=== PATIENT | male | born 1950 | race Caucasian/White ===

== ENCOUNTER → 2018-01-18 08:47 | Outpatient (CLI) | payer MEDICARE, SELFPAY ==
--- NOTE | 2018-01-18 | DI.US.S_ITS ---
PROCEDURE: US RETRO PERITONEAL LIMITED INDICATIONS: AAA F/U TECHNIQUE: Real time scanning was performed of the aorta and iliac arteries, with image documentation. COMPARISON: None. FINDINGS: Aorta: Proximal aortic diameter measures 2.1 cm. Mid-aorta measures 3.4 cm AP, 3.5 cm transverse, 4.3 cm craniocaudad. Distal aortic diameter is 2.1 cm. Iliac arteries: Right common iliac artery measures 1.2 cm. Left common iliac artery measures 1.3 cm. IMPRESSION: Stable appearance of a mid abdominal aortic fusiform aneurysm, measuring up to 3.5 cm in maximal axial dimension, with reference to the prior ultrasound study 08/03/17. Followup in 1 year is recommended. Dictated by: Candido Valderrama M.D. on 01/18/2018 at 10:02 Approved by: Candido Valderrama M.D. on 01/18/2018 at 10:08
== END ==
PROVIDERS: Family Provider Family Medicine; PCP Family Medicine; Visit Provider Family Medicine
DX: I71.4 Abdominal aortic aneurysm, without rupture (principal)
CPT/HCPCS: 76775

== ENCOUNTER → 2018-03-06 20:55 | Outpatient (CLI) | payer MEDICARE, SELFPAY | PROVIDERS: Family Provider Family Medicine; PCP Family Medicine; Visit Provider Physician Assistant | DX: N39.0 Urinary tract infection, site not specified (principal) | CPT/HCPCS: 87086 ==

== ENCOUNTER → 2020-08-24 11:16 | Outpatient (CLI) | payer OTHER, SELFPAY | PROVIDERS: Visit Provider Physician Assistant | DX: N39.0 Urinary tract infection, site not specified (principal) | CPT/HCPCS: 87077; 87086; 87186 ==

== ENCOUNTER → 2020-09-09 10:21 | Outpatient (CLI) | payer OTHER, SELFPAY ==
--- NOTE | 2020-09-09 | DI.CT.S_ITS ---
PROCEDURE: CT ABDOMEN PELVIS W CON INDICATIONS: Left lower quadrant pain TECHNIQUE: After the administration of oral and intravenous contrast, 5 mm thick sections acquired from the diaphragms to the symphysis. 5 mm thick coronal and sagittal reformats were performed. For radiation dose reduction, the following was used: automated exposure control, adjustment of mA and/or kV according to patient size. COMPARISON: [facility], US, US AAA SCREENING (MEDICARE), 09/12/2019, 10:27. [facility], CT, CT LOW DOSE LUNG CA SCREENING, 06/06/2019, 11:26. FINDINGS: Image quality: Excellent. ABDOMEN: Lung bases: Lung bases are clear. Heart size is prominent. Post median sternotomy. Solid organs: Liver is normal in size and enhancement. Gallbladder is unremarkable. Biliary system is non-dilated. Pancreas enhances normally. Spleen is normal in size and enhancement. No adrenal nodules. Renal enhancement is symmetric. The left kidney appears somewhat atrophic compared to the right. There is bilateral moderate hydronephrosis. Bilateral hydroureter. Nonobstructing calculus in the inferior pole of the left kidney measuring 1.2 cm. Simple renal cysts bilaterally. Peritoneum and bowel: Stomach, small bowel, and colon loops are normal in caliber and wall thickness. Normal appendix. Diverticulosis. No free fluid or air. Nodes and vessels: No retroperitoneal or mesenteric adenopathy. Infrarenal abdominal aortic aneurysm measuring 4.2 cm, (5/48). Extensive calcified atherosclerotic plaque. Left common iliac artery measures 2.2 cm. Right common iliac artery measures 1.7 cm. Miscellaneous: No ventral hernias. PELVIS: Genitourinary: Bladder is distended. There is a calculus near the right UVJ measuring 1 cm. Prostatomegaly with median lobe hypertrophy. Right hydrocele seen. Miscellaneous: No inguinal hernias or adenopathy. Bones: No suspicious bony lesions. Bone island in the inferior right pubic ramus. Moderate DDD. No vertebral body compression fractures. IMPRESSION: 1. Diverticulosis without diverticulitis. No bowel obstruction. 2. Bilateral moderate hydroureteronephrosis. Distended urinary bladder and prostatomegaly. Findings most compatible with bladder outlet obstruction. 3. Bladder calculus and nonobstructing left kidney stone. 4. Infrarenal abdominal aortic aneurysm measuring 4.2 cm, unchanged. 5. Atrophic appearing left kidney suggesting a chronic disease. Comment: Findings were discussed with Marge Arndt MD at 12:47 p.m. Dictated by: Thompson Collins M.D. on 09/09/2020 at 12:32 Approved by: Thompson Collins M.D. on 09/09/2020 at 12:48
== END ==
PROVIDERS: PCP Student in an Organized Health Care Education/Training Program; Referring Provider Student in an Organized Health Care Education/Training Program; Visit Provider Student in an Organized Health Care Education/Training Program
DX: K57.90 Diverticulosis of intestine, part unspecified, without perforation or abscess without bleeding (principal); N13.30 Unspecified hydronephrosis; N40.0 Benign prostatic hyperplasia without lower urinary tract symptoms; N21.0 Calculus in bladder; N20.0 Calculus of kidney; I71.4 Abdominal aortic aneurysm, without rupture
CPT/HCPCS: 74177; Q9967

== ENCOUNTER → 2020-11-10 13:07 | Outpatient (CLI) | payer OTHER, MEDICARE, SELFPAY ==
[2020-11-10 13:38] LABS: COVID19 -Nasal RAPID Negative (Negative)
== END ==
PROVIDERS: PCP Student in an Organized Health Care Education/Training Program; Visit Provider Specialist
DX: Z20.822 Contact with and (suspected) exposure to COVID-19 (principal)
CPT/HCPCS: 87635

== ENCOUNTER 2020-11-12 07:56 | Day surgery (SDC) | payer OTHER, MEDICARE, SELFPAY ==
[2020-11-10 08:16] VITALS: BMI 38.4
--- NOTE | 2020-11-12 | DI.RAD.S_ITS ---
PROCEDURE: XR KUB INDICATIONS: Right ureteral calculus TECHNIQUE: One view of the abdomen acquired. COMPARISON: [facility], CT, CT ABDOMEN PELVIS W CON, 09/09/2020, 11:35. FINDINGS: Surgical changes and devices: None. Bowel: Bowel gas pattern is normal. Soft tissues: 1.2 centimeter stone projects over the superior pole of the left kidney. 1 centimeter stone projects over the right lower hemipelvis expected region of the right UVJ. Visualized solid organ contours appear normal in size. Bones: No suspicious bony lesions. IMPRESSION: Left renal and right UVJ stones unchanged in position compared to September 09, 2020. Dictated by: Fidelina Danielle MD, PhD on 11/12/2020 at 8:38 Approved by: Fidelina Danielle MD, PhD on 11/12/2020 at 8:40
[2020-11-12 08:22] VITALS: BP 133/76; PULSE 55; RESP 16; TEMP 36.2; O2SAT 94
[2020-11-12 08:34] VITALS: BMI 38.4
--- NOTE | 2020-11-12 09:37 | PM.PREOP ---
Pre-operative Note Interval Note History & Physical reviewed/Exam performed by Physician: Yes Changes to H&P: No
== END 2020-11-12 08:00 | disposition home or self-care (01) ==
LOC: OR 07:57
PROVIDERS: PCP Student in an Organized Health Care Education/Training Program; Referring Provider Student in an Organized Health Care Education/Training Program; Visit Provider Specialist
DX: N20.1 Calculus of ureter (principal); R00.1 Bradycardia, unspecified; Z53.09 Procedure and treatment not carried out because of other contraindication
CPT/HCPCS: 52353; 74018

== ENCOUNTER → 2020-11-18 11:47 | Outpatient (CLI) | payer OTHER, MEDICARE, SELFPAY ==
[2020-11-18 12:15] LABS: COVID19 -Nasal RAPID Negative (Negative)
== END ==
PROVIDERS: PCP Student in an Organized Health Care Education/Training Program; Visit Provider Specialist
DX: Z20.822 Contact with and (suspected) exposure to COVID-19 (principal)
CPT/HCPCS: 87635; C9803

== ENCOUNTER 2020-11-19 06:32 | Day surgery (SDC) | payer OTHER, MEDICARE, SELFPAY ==
[2020-11-15 12:05] VITALS: BMI 38.4
[2020-11-19] VITALS (7 sets, daily range): BP systolic 117–152; BP diastolic 60–85; PULSE 45–58; RESP 10–16; TEMP 35.8–37.1; O2SAT 93–98; BMI 38.4
[2020-11-19] MEDS: LACTATED RINGERS 1,000 ML 42 ML IV (07:20)
--- NOTE | 2020-11-19 07:38 | PM.PREOP ---
Pre-operative Note Interval Note History & Physical reviewed/Exam performed by Physician: Yes Changes to H&P: No
[2020-11-19] MEDS: CEFAZOLIN VIAL 3 GM in SODIUM CHLORIDE 0.9% 100 ML 200 ML IV (07:52)
--- NOTE | 2020-11-19 08:07 | SUR.OPER ---
Lithotomy on padded OR bed, head on pillow, arms secured on padded arm boards at <90 degrees abduction. Legs secured in padded yellow fins stirrups.
--- NOTE | 2020-11-19 08:11 | SUR.OPER ---
Patient is asleep and ready for a surgery; surgeon has been notified at 08:00. Waiting for surgeon.
[2020-11-19] MEDS: IOPAMIDOL 15 ML VIAL INJ (08:25)
--- NOTE | 2020-11-19 09:08 | SUR.PHASEI ---
Received to PACU after general anesthesia. Airway patent, self maintained. Report from GERARDO Alston and Dr Goldsmith. Dr Malone at bedside - instructed not to give the B&O suppository.
--- NOTE | 2020-11-19 09:09 | P.OP_ITS ---
Operative Date/Time/Diagnoses Date of procedure: 11/19/20 Time of procedure: 09:09 Pre-op diagnosis: 1. Bladder calculus Post-op diagnosis: other (Also, left distal ureteral calculus) Procedure & Clinicians Procedure: 1. Laser cystolitholapaxy 2. Left ureteral stone extraction Same procedure as scheduled: No (Left ureteral stone extraction for incidental calculus at left ureteral [place]) Indications: 1. Bladder calculus Surgeon: Keely Malone Click Yes if Unassisted: Yes Anesthesia Type: General Operative Notes Findings: 1. Urethra-normal caliber without annular stricture lesion. 2. External sphincter coapted with a normal overlying urothelium. 3. Prostate 5 cm length with obstructing trilobar hyperplasia. 4. Bladder-1 to 2+ trabeculation with moderate intravesical protrusion of median lobe. A spherical calculus with spiculations was identified line dependently in the bladder floor. A small calculus was seen intermittently at the left ureteral meatus. Intraoperative decision to perform left distal ureteral dilation and stone extraction performed. Closure Type: not applicable Specimen(s): other (Laser stone fragments from bladder stone) Estimated Blood Loss (mL): 1 Blood products transfused: none Tourniquet time (min): 0 Procedure in detail: Patient was positioned supine and administered general anesthesia. He was then repositioned semi lithotomy and the lower abdomen, genitalia, and groin were prepped and draped in sterile fashion. The laser cystoscope was then advanced lower urinary tract with the findings as described above. A 500 micron laser was then selected. All operating room personnel and patient were fitted with laser safety eyewear. Laser lithotripsy was then commenced with excellent resultant fragmentation and clearance into the drain. A small calculus was seen intermittently emanating from the left ureteral meatus with associated mucosal edema. A 0.35 guidewire was then advanced left ureteral orifice and advanced proximally under direct and fluoroscopic guidance. A 12 Estonian by 6 cm balloon dilating catheter was then advanced over the guidewire and positioned across the left ureterovesical junction. The balloon was inflated to 18 atmospheres and held in position for 5 minutes. The balloon was then deflated and backloaded off the wire the stone and fragmented and ureteral efflux resulted in clearance of the stone and its fragments with the assistance of mechanical agitation with the guidewire. The guidewire was then withdrawn. The bladder was then drained completely and the laser cystoscope was removed. Patient was then repositioned in supine, awakened, and transferred to [facility] for transportation to PACU. Complications: none Post-operative Condition: stable Disposition: PACU Plan for aftercare: Discharge home
[2020-11-19] MEDS: HYDROCODONE/ACET 5/325 TABLET 1 TAB PO (09:18)
--- NOTE | 2020-11-19 10:18 | SUR.PHASEII ---
Pt was escorted to restroom. Urinal and screening cone was given for stone retrieval. Pt stated he was able to urinate but no stones were found. Pt was prepared for discharge with instructions given on how to do the screening and to place them in the container provided. Also he was instructed to take any stones collected to his next follow up appt.
[2020-11-27 15:44] LABS: Ca oxalate dihydrate 10 % (.); Ca oxalate monohydr 90 % (.)
== END 2020-11-19 10:15 | disposition home or self-care (01) ==
PROVIDERS: PCP Student in an Organized Health Care Education/Training Program; Referring Provider Student in an Organized Health Care Education/Training Program; Visit Provider Specialist
PROC: (CPT 52317; principal; 2020-11-19 07:45)
DX: N21.0 Calculus in bladder (principal); N20.1 Calculus of ureter; Z87.440 Personal history of urinary (tract) infections; N40.1 Benign prostatic hyperplasia with lower urinary tract symptoms; N13.8 Other obstructive and reflux uropathy; I25.10 Atherosclerotic heart disease of native coronary artery without angina pectoris; I25.2 Old myocardial infarction; E78.5 Hyperlipidemia, unspecified; I10 Essential (primary) hypertension; R33.9 Retention of urine, unspecified
CPT/HCPCS: 52317; 52341; 76000; 82365; J0461; J0690; J2405; J2704; J3010

== ENCOUNTER → 2021-01-14 09:43 | Outpatient (CLI) | payer OTHER, MEDICARE, SELFPAY ==
--- NOTE | 2021-01-14 09:47 | DI.RAD.S_ITS ---
PROCEDURE: XR KUB INDICATIONS: BPH, Renal/bladder stones, prostatitis TECHNIQUE: One view of the abdomen acquired. COMPARISON: [facility], CR, XR KUB, 11/12/2020, 8:20. FINDINGS: Surgical changes and devices: None. Bowel: Bowel gas pattern is normal. Soft tissues: Scattered vascular calcifications. 1.1 cm calcification projecting in the region of the left kidney. Previous 1 cm calculus projecting in the right lower hemipelvis this is no longer visualized. Bones: Diffuse spondylosis and facet arthropathy. Moderate bilateral hip joint degeneration. IMPRESSION: Interval resolution of right ureteral vesicular junction calculus. Unchanged appearance of left nephrolithiasis. Dictated by: Fish Chu M.D. on 01/14/2021 at 11:53 Approved by: Fish Chu M.D. on 01/14/2021 at 11:55
[2021-01-14 11:00] LABS: Calcium 9.6 mg/dL (8.4-10.2); Uric Acid 6.5 mg/dL (3.5-8.5)
[2021-01-15 12:09] LABS: Calcium 9.5 mg/dL (8.6-10.2); Parathyroid Hormone, Intact 50 pg/mL (15-65)
== END ==
PROVIDERS: PCP Student in an Organized Health Care Education/Training Program; Referring Provider Specialist; Visit Provider Specialist
DX: N40.1 Benign prostatic hyperplasia with lower urinary tract symptoms (principal); N13.8 Other obstructive and reflux uropathy; N20.0 Calculus of kidney; N21.0 Calculus in bladder; N41.0 Acute prostatitis
CPT/HCPCS: 36415; 74018; 82310; 83970; 84153; 84550

== ENCOUNTER → 2021-06-29 08:26 | Outpatient (CLI) | payer MEDICARE, SELFPAY ==
[2021-06-29 11:48] LABS: COVID19 -Nasal RAPID Negative (Negative)
== END ==
PROVIDERS: PCP Student in an Organized Health Care Education/Training Program; Visit Provider Physician Assistant
DX: Z20.822 Contact with and (suspected) exposure to COVID-19 (principal)
CPT/HCPCS: 87635; C9803

== ENCOUNTER 2021-07-01 13:17 | Day surgery (SDC) | payer MEDICARE, SELFPAY ==
--- NOTE | 2021-07-01 | PATH_ITS ---
[facility] Accession Number: [id number] . 01 Material submitted: . PART A: colon - TRANSVERSE COLON POLYP 2MM PART B: colon - DESCENDING COLON POLYP 2MM PART C: sigmoid colon - SIGMOID COLON POLYP 4MM . 02 Diagnosis: A. Transverse Colon Polyp 2 mm: Tubular adenoma. . B. Descending Colon Polyp 2 mm: Tubular adenoma. . C. Sigmoid Colon Polyp 4 mm: Portions of hyperplastic polyp x2. MRV 07/07/2021 1443 Local . 02 Electronically signed: . Kymberly Hobbs MD, Pathologist NPI- [id number] . 01 Gross description: . Part A: TRANSVERSE COLON POLYP 2MM: Received in formalin is 1 fragment(s) of tee, soft tissue measuring 0.3 x 0.2 x 0.2 cm submitted entirely in 1 cassette(s) Part B: DESCENDING COLON POLYP 2MM: Received in formalin is 1 fragment(s) of tee, soft tissue measuring 0.3 x 0.3 x 0.3 cm submitted entirely in 1 cassette(s) Part C: SIGMOID COLON POLYP 4MM: Received in formalin are 2 fragment(s) of tee, soft tissue measuring 0.2 x 0.2 x 0.2 cm to 0.3 x 0.3 x 0.2 cm submitted entirely in 1 cassette(s) /RIVER 07/04/2021 1903 Local . 02 Pathologist provided ICD-10: K63.5, Z12.11 . 02 CPT . 179714, 387278, [id number] Performed at: 01 [facility] [address], [place], [place] [id number] MD Calvin Ahumada MD Phone: [phone] Performed at: 02 [facility] [address] [place] [id number] MD Katlin Torres MD Phone: [phone]
--- NOTE | 2021-07-01 12:32 | PM.HP.1 ---
History of Present Illness History of Present Illness Date Patient Seen: 07/01/21 Chief complaint: SCREENING COLONOSCOPY Narrative: 71 year old male comes in today for consideration of a screening colonoscopy. First colonoscopy in 1998 indicated for rectal bleeding and significant for four left-sided polyps, tubular adeonmas and hyperplastic. Last colonosocpy in 2018, significant for three tubular adenomas at 50, 60, and 70 cm and diverticulosis. There have been no lower GI symptoms suggesting disease such as change in bowel habits, bleeding, abdominal pain or anemia. There's been no family history of colon cancer or colon polyps. Overall health issues have been stable, including no major cardiac events for at least 6 weeks. PCP: Dr. Garcia Past Medical History: Nephrolithiasis Basal cell CA DM, TYPE 2, W/ MICROALBUMINURIA DM, TYPE 2, W/ OPHTHALMIC COMPL Microalbuminuria HYPERLIPIDEMIA HYPERTENSION, BENIGN ESSENTIAL CAD ABDOMINAL AORTIC ANEURYSM, W/O RUPTURE OBESITY (BMI <40) Libido, decreased ERECTILE DYSFUNCTIO COLON POLYPS, ADENOMATOUS, HX OF Enlarged and hypertrophic nails Past Surgical History: CABG, single vessel left internal mammary to LAD Colon cysts removed Basal cell removed Cataract Extraction jenna 12/29 Family History: Father: Heart Disease, Cancer, Diabetes Mother: Cancer Social History: Marital Status: Household Members: Spouse-Lashanda Patient History Medical History (Updated 01/27/21 @ 09:43 by Keely Malone MD) Abdominal aortic aneurysm BCC (basal cell carcinoma) Bladder calculus BPH (benign prostatic hyperplasia) BPH w urinary obs/LUTS CAD (coronary artery disease) Diabetes Erectile dysfunction Heart attack History of colon polyps History of nephrolithiasis History of UTI HLD (hyperlipidemia) Hydronephrosis Hypertension Ischemic cardiomyopathy Kidney stones Left renal stone Microalbuminuria Prostatitis Urinary retention Surgical History History of cardiac cath S/P CABG x 1 (2012) Family & Social History Family History Mother Cancer Father Cancer Diabetes mellitus Grandmother Hearing impairment Social History: household members spouse Tobacco & Substance use: Smoking Status Former smoker alcohol intake current alcohol intake frequency holiday/special occasion Substance Use Type does not use Meds Home Medications and Allergies Home Medications Medication Instructions Recorded Confirmed Type aspirin 81 mg tablet,delayed 81 mg PO DAILY 02/13/19 07/01/21 History release (Adult Low Dose Aspirin) niacin 250 mg tablet 250 mg PO DAILY 09/15/20 07/01/21 History turmeric 400 mg capsule 400 mg PO DAILY 09/15/20 01/27/21 History carvedilol 12.5 mg tablet 12.5 mg PO BID 11/10/20 07/01/21 History glimepiride 4 mg tablet 4 mg PO BID 11/10/20 07/01/21 History metformin 1,000 mg tablet 1,000 mg PO BID 11/10/20 07/01/21 History pravastatin 40 mg tablet 40 mg PO DAILY 11/10/20 07/01/21 History tamsulosin 0.4 mg capsule 0.4 mg PO BEDTIME #90 cap 11/19/20 07/01/21 Rx olmesartan 20 mg tablet 20 mg PO DAILY 01/27/21 07/01/21 History prasterone (dhea) 50 mg capsule 50 mg PO DAILY 01/27/21 07/01/21 History (DHEA) Allergies Allergy/AdvReac Type Severity Reaction Status Date / Time No Known Drug Allergies Allergy Verified 07/01/21 13:57 Review of Systems Review of Systems Narrative: All remaining ROS were reviewed and negative except as addressed. Exam Narrative Exam Narrative: GENERAL: Alert and oriented, appearing stated age and in no acute distress. HEENT: Head normocephalic/atraumatic. Extraocular movements intact. LUNGS: Clear to ausculation bilaterally, no wheezes, rhonchi or rales. CV: Normal S1 and S2 with regular rate and rhythm, no audible murmurs, rubs or gallops. ABDOMEN: Soft, non-tender, non-distended, no organomegaly. Positive bowel sounds. EXTREMITIES: No clubbing, cyanosis, or edema. NEURO: Cranial nerves II through XII grossly intact, no focal deficits. PSYCH: Alert and oriented x 3. SKIN: No concerning lesions. Assessment & Plan Assessment & Plan narrative: 1. History of colon polyps 2. Screening for colon cancer 3. Diverticulosis Plan for colonoscopy. The nature and character of the procedure as well as anticipated results were discussed. The possibility of not completing the procedure was also discussed. Possible complications including aspiration pneumonia, bleeding, perforation and reaction to medications either for sedation or preparation and missed lesions were discussed. Questions were answered and proceeding to the colonoscopy was elected. Informed consent signed. I sincerely appreciate the referral allowing me to participate in this patient's care. Please contact me with any questions or concerns.
--- NOTE | 2021-07-01 12:43 | P.OP.COLON_ITS ---
Operative Date/Time/Diagnoses Date of procedure: 07/01/21 Procedure Notes SCOAP/Timeout: 3:20 p.m. Procedure in detail: ENDOSCOPIST: Marge Garcia MD Sedation RN: Blanquita Cowan RN Sedation start time: 3:21 p.m. Sedation end time: 3:29 p.m. PROCEDURE: Colonoscopy with cold biopsy INDICATIONS: 1. History of colon polyps 2. Diverticulosis 3. Screening for colon cancer MEDICATION: Levsin 0.125 mg sublingual, incremental doses of Versed and fen tanyl until appropriate level sedation achieved. ASA CLASS: 2 CECAL WITHDRAWAL TIME: 18 minutes COMPLICATIONS: None. EXTENT OF PROCEDURE: Cecum. QUALITY OF PREP: Good with portions of liquid stool. PROCEDURE: Prior to insertion of the colonoscope, a digital rectal examination was accomplished with circumferential palpation of the distal rectal mucosa without significant findings being noted. The high-definition colonoscope was passed into the rectum in the usual fashion and advanced over to the cecum without difficulty. The ileocecal valve, appendiceal stoma, and medial wall all could be inspected and no abnormalities were seen. ASCENDING COLON: As the colonoscope was withdrawn, care was taken to expose and inspect the haustral folds and no abnormalities were seen. HEPATIC FLEXURE: Normal, no polyps, diverticula or other abnormalities. TRANSVERSE COLON: A 2 mm polyp was seen and removed with cold biopsy forceps. Otherwise, normal, no diverticula or other abnormalities. DESCENDING COLON: A 2 mm polyp was seen and removed with cold biopsy forceps. Otherwise, normal, minor diverticulosis and no other abnormalities. SIGMOID COLON: A 4 mm polyp was seen and removed with cold biopsy forceps. Otherwise, minor diverticulosis and no other abnormalities. RECTUM: Normal. J maneuver was produced. There was no significant perianal disease. The J maneuver was broken. The remainder of the rectum was inspected and there was no external hemorrhoid disease. The scope was withdrawn. IMPRESSION: 1. Transverse polyp x1, 2 mm, removed with cold biopsy forceps 2. Descending polyp x1, 2 mm, removed with cold biopsy forceps 3. Sigmoid polyp x1, 4 mm, removed with cold biopsy forceps PLAN: 1. Follow-up in clinic status post pathology results. The possibility of a missed lesion including a malignancy has been discussed with the patient previously. Potential alarm symptoms have been discussed and should be reported immediately.
[2021-07-01] MEDS: LACTATED RINGERS 1,000 ML 200 ML IV (14:06)
[2021-07-01] MEDS: HYOSCYAMINE 0.125 MG TABLET PO (14:07)
[2021-07-01 14:09] VITALS: BP 175/94; PULSE 57; RESP 16; TEMP 36.7; O2SAT 96; BMI 39.1
[2021-07-01] MEDS: MIDAZOLAM 5 MG/5 ML VIAL IV (15:40)
[2021-07-01] MEDS: fentaNYL 250 MCG/5 ML INJ IV (15:40)
[2021-07-01 15:53] VITALS: BP 122/54; PULSE 53; RESP 23; TEMP 36.3; O2SAT 93
[2021-07-01 16:00] VITALS: BP 118/69; PULSE 64; RESP 15; O2SAT 94
--- NOTE | 2021-07-01 16:02 | SUR.PHASEI ---
Patient sitting up drinking juice without difficulty. Denies any pain or nausea.
[2021-07-01 16:05] VITALS: BP 145/68; PULSE 55; RESP 18; O2SAT 94
[2021-07-01 16:25] VITALS: BP 118/76; PULSE 56; RESP 16; TEMP 36.2; O2SAT 94
== END 2021-07-01 16:27 | disposition home or self-care (01) ==
PROVIDERS: PCP Student in an Organized Health Care Education/Training Program; Referring Provider Student in an Organized Health Care Education/Training Program; Visit Provider Student in an Organized Health Care Education/Training Program
PROC: 0DJD8ZZ Inspection of Lower Intestinal Tract, Via Natural or Artificial Opening Endoscopic (ICD-10-PCS; CPT 45378; principal; 2021-07-01 14:30)
DX: Z12.11 Encounter for screening for malignant neoplasm of colon (principal); Z86.010 Personal history of colon polyps; E11.69 Type 2 diabetes mellitus with other specified complication; Z79.84 Long term (current) use of oral hypoglycemic drugs; I25.10 Atherosclerotic heart disease of native coronary artery without angina pectoris; I10 Essential (primary) hypertension; N40.1 Benign prostatic hyperplasia with lower urinary tract symptoms; I25.2 Old myocardial infarction; N13.8 Other obstructive and reflux uropathy; K57.30 Diverticulosis of large intestine without perforation or abscess without bleeding; D12.3 Benign neoplasm of transverse colon; D12.4 Benign neoplasm of descending colon
CPT/HCPCS: 45380; 36415; J2250; J3010

== ENCOUNTER → 2021-08-28 11:05 | Outpatient (CLI) | payer OTHER, SELFPAY ==
[2021-08-28 11:51] LABS: COVID19 -Nasal RAPID Negative (Negative)
== END ==
PROVIDERS: PCP Student in an Organized Health Care Education/Training Program; Visit Provider Nurse Practitioner Family
DX: Z20.822 Contact with and (suspected) exposure to COVID-19 (principal)
CPT/HCPCS: 87635

== ENCOUNTER → 2021-10-05 14:26 | Outpatient (CLI) | payer OTHER, SELFPAY ==
--- NOTE | 2021-10-11 16:54 | DIAB.MNT ---
Initial Diabetes Medical Nutrition Therapy Assessment Name: Miguelito Orellana Date: 10/05/21 Time: 335-440p Dx: Type II Diabetes c microalbuminuria and opthalmic complications Provider: Jose Preferred Learning Style: Listening, watching, reading, doing Miguelito presents today for initial visit regarding T2DM. States he is unsure of when he was diagnosed, but states he started Metformin possibly 10 years ago. +FH DM c father, paternal aunt, and brother. Has never taken classes for DSME. Has financial barriers. Has not been to dentist in years. Has dentures. Last eye exam in May 2020. Has questions regarding what cereal may be a good option. Diet recall indicates limited veggie intake. likes corn, cabbage and cauliflower. is filipina and often has rice with meals. Diet Recall: B: 445a cereal, toasted o one cup + 1c mountain cereal, TBS cranberries, half cup milk L: 12p 1-2 slices bread with eggs ; sandwich ; 1c pretzels with egg whites sn: +/- pretzels with cream cheese D: 6-8p chicken with 3/4 c rice or 1c potatoes ; fish with rice ; 2c red beans and rice sn: +/- cassava cake with 1/4c ice cream ; jae snaps or belvita Beverages: 2-3c tea with honey (unsure amt) ; 16oz x 3 water Anthropometrics: Ht: 67 Wt: 252# reported Physical Activity: 30 min treadmill x 3-5 days per week. Was advised not to lift heavy weights or do sit-ups by cheese weigher. Doing some light weight lifting. More sedentary than ever per report. Feels this has increased with age. Self-Monitoring Blood Glucose: Thinking he may want to check his BG. No meter rx currently. 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 w/resulting apical akinesis, possible dyskinesis History of colon polyps History of nephrolithiasis History of UTI HLD (hyperlipidemia) Hydronephrosis Hypertension Ischemic cardiomyopathy Kidney stones Left renal stone Microalbuminuria Prostatitis S/P CABG x 1 (2012) Urinary retention Nutrition Rx: Carbohydrates: Meal: 45g (60g max) Snack: 15-30g Nutrition Diagnosis: - Excessive CHO intake r/t nutrition related knowledge deficit aeb diet recall and pt report - Self monitoring deficit r/t knowledge deficit aeb pt report - Inconsistent protein intake r/t nutrition related knowledge deficit aeb diet recall and pt report Intervention: This participant was very receptive. Provided appropriate educational handouts. Discussed the following topics: Completed intake assessment. Discussed barriers to care. Pathophysiology of T2DM HgA1c and rationale for goal Importance of self-monitoring, how often, and when to check. Suggested checking at different times to evaluate meals Plate Method, impact of macronutrients on blood sugar, meal timing, carbohydrate counting, pairing macronutrients and spreading out carbohydrates for better blood glucose management Recommended servings for carbohydrates at meals and snacks Brainstormed appropriate meal plan based on food preferences Label reading for net carbs, ie cereal Role of physical activity and following provider guidelines for safety Created SMART goals for patient self-care and success. Goals: Call PCP office for meter and supplies rx prn Treadmill 5 days per week Add protein to breakfast Follow-up: MUNA SOARES follow-up in 3-4 weeks Marcella Howell RDN, RODGER Certified Diabetes Care and Staffing Coordinator P: [phone] Thank you for this referral
== END ==
PROVIDERS: PCP Student in an Organized Health Care Education/Training Program; Referring Provider Student in an Organized Health Care Education/Training Program; Visit Provider Student in an Organized Health Care Education/Training Program
DX: E11.9 Type 2 diabetes mellitus without complications (principal); R80.9 Proteinuria, unspecified; H57.9 Unspecified disorder of eye and adnexa; Z79.84 Long term (current) use of oral hypoglycemic drugs; Z71.3 Dietary counseling and surveillance
CPT/HCPCS: 97802

== ENCOUNTER → 2021-10-27 13:04 | Outpatient (CLI) | payer OTHER, SELFPAY ==
--- NOTE | 2021-10-28 16:57 | DIAB.MNTFU ---
Addendum entered by Marcella Howell 11/03/21 17:34: Physical activity: using treadmill as discussed No weight this visit. Original Note: Follow-up Diabetes Medical Nutrition Therapy Assessment Name: Miguelito Orellana Date: 10/27/21 Time: 110-210p Dx: Type II Diabetes Miguelito presents for follow-up regarding T2DM. Would like to focus on nutrition recs today. Same diet recall reported from last visit, with small changes. He is unclear on how to implement carb counting or pairing. Endorses regular dessert after dinner with honey sweetened tea. Interested in DSME classes. Diet Recall: B: 445a cereal, toasted o one cup + 1c mountain cereal, TBS cranberries, half cup milk L: 12p 1-2 slices bread or 4-5 roll with eggs ; sandwich ; 1c pretzels with egg whites sn: +/- pretzels with cream cheese D: 6-8p chicken with 3/4 c rice or 1c potatoes ; fish with rice ; 2c red beans and rice sn: +/- cassava cake with 1/4c ice cream ; jae snaps or belvita Beverages: 2-3c tea with honey (unsure amt) ; 16oz x 3 water Anthropometrics: Ht: Wt: Weight history: Physical Activity: Self-Monitoring Blood Glucose: Received glucose meter last week. Checked a few BG since. This morning FBG was 194 mg/dL, H. May not be fasting for a full 8 hours over night. Previous readings >200mg/dL. Has questions about when to check. Accidentally threw out strips. 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 w/resulting apical akinesis, possible dyskinesis History of colon polyps History of nephrolithiasis History of UTI HLD (hyperlipidemia) Hydronephrosis Hypertension Ischemic cardiomyopathy Kidney stones Left renal stone Microalbuminuria Prostatitis S/P CABG x 1 (2012) Urinary retention Nutrition Rx: Carbohydrates: Meal: 45g (60g max) Snack: 15-30g Nutrition Diagnosis: - Excessive CHO intake r/t nutrition related knowledge deficit aeb diet recall and pt report - Self monitoring deficit r/t knowledge deficit aeb pt report- improved - Inconsistent protein intake r/t nutrition related knowledge deficit aeb diet recall and pt report Intervention: This participant was very receptive. Provided appropriate educational handouts. Discussed the following topics: Importance of self-monitoring, how often, and when to check. Suggested checking at different times to evaluate meals Strips through insurance vs OTC expense Plate Method, impact of macronutrients on blood sugar, meal timing, carbohydrate counting, pairing macronutrients and spreading out carbohydrates for better blood glucose management Recommended servings for carbohydrates at meals and snacks Brainstormed appropriate meal plan based on food preferences Physical activity plan and progress Created SMART goals for patient self-care and success. Goals: Call PCP office for meter and supplies rx prn- met Treadmill 5 days per week- met Add protein to breakfast- in progress Fast 8 hours prior to FBG check- new Check BG 1-2 x per day: FBG and 1-2 hr pc- new Follow-up: MUNA SOARES follow-up in 2-3 weeks. Miguelito will attend the DSME 3 class series. Will check his recent BG next class and schedule a 1:1 follow-up. Marcella Howell RDN, [facility] Certified Diabetes Care and Coil Placer P: [phone] Thank you for this referral
== END ==
PROVIDERS: PCP Student in an Organized Health Care Education/Training Program; Referring Provider Student in an Organized Health Care Education/Training Program; Visit Provider Student in an Organized Health Care Education/Training Program
DX: E11.9 Type 2 diabetes mellitus without complications (principal); Z79.84 Long term (current) use of oral hypoglycemic drugs; Z71.3 Dietary counseling and surveillance
CPT/HCPCS: 97803

== ENCOUNTER → 2021-11-15 09:12 | Outpatient (CLI) | payer OTHER, SELFPAY ==
--- NOTE | 2021-11-15 17:52 | DIAB.FU ---
Diabetes Education Class Series: Diabetes and Nutrition Name: Miguelito Orellana Date: 11/15/21 Time: 930a-12:20p Miguelito reports he has been working on physical activity, increasing water intake and looking fo patterns in BG. States today's label reading info was very helpful and he feels more confident in choosing foods at the grocery store. He brought his BG logs today for review. FBG are often in goal when fasting a full 8 hours overnight. Class topics covered: ? Debunk nutrition myths and discuss how to sustain healthy eating long-term through moderation and variety ? Define macronutrients and determine their impact on blood sugars ? Discuss macronutrient pairing, Plate Method, and carb counting ? Review general recommendations for carbohydrates ? Practice label reading ? Discuss the role of fiber in diabetes and provide examples of sources ? Review heart health nutrition: fats, fiber, and sodium ? Determine recommendations for grocery shopping and eating out ? Discuss alcohol recommendations ? Review the role of substitute sugars in diabetes management ? Set SMART goals Goal Set: Eat vegetables twice per day for the next month. Follow-up: Diabetes Physiology and Medication Class in one week Marcella Howell RDN, [facility] Registered Dietitian, Certified Diabetes Care and Customer Support Representative [phone] [email or web address]
== END ==
PROVIDERS: PCP Student in an Organized Health Care Education/Training Program; Referring Provider Student in an Organized Health Care Education/Training Program; Visit Provider Student in an Organized Health Care Education/Training Program
DX: E11.9 Type 2 diabetes mellitus without complications (principal); Z71.3 Dietary counseling and surveillance
CPT/HCPCS: G0109

== ENCOUNTER → 2021-11-22 08:57 | Outpatient (CLI) | payer OTHER, SELFPAY ==
--- NOTE | 2021-11-22 15:20 | DIAB.FU ---
Diabetes Education Class Series: Diabetes Physiology and Medications Name: Miguelito Orellana Date: 11/22/21 Time: 190-3070a Miguelito reports continuing to work on reduction in FBG. Has questions regarding BG trends and impact of physiology vs nutrition vs physical activity. Was very attentive and participated well in class. Class topics covered: ? Diabetes pathophysiology ? Discuss different types of diabetes ? Review criteria for diagnosing diabetes ? Review HgA1c measurement and associated blood sugars ? Review blood sugar monitoring safety, technique, and goals ? Discuss ways to reduce complications associated with diabetes, includes microvascular and macrovascular complications ? Review diabetes medications types, action, and side effects ? Health care visits recommended for people with T2DM ? Immunization recommended for people with T2DM ? SMART goals review Follow-up: Diabetes Lifestyle and Ongoing Support Class next month. Due to limited attendance, next week's class is rescheduled. 1:1 scheduled for 1 week and will attend last class next month. Marcella Howell RDN, [facility] Registered Dietitian, Certified Diabetes Care and Material Damage Adjuster [phone] [email or web address]
== END ==
PROVIDERS: PCP Student in an Organized Health Care Education/Training Program; Referring Provider Student in an Organized Health Care Education/Training Program; Visit Provider Student in an Organized Health Care Education/Training Program
DX: E11.9 Type 2 diabetes mellitus without complications (principal); Z71.3 Dietary counseling and surveillance
CPT/HCPCS: G0109

== ENCOUNTER → 2021-11-29 09:27 | Outpatient (CLI) | payer OTHER, SELFPAY ==
--- NOTE | 2021-11-29 10:51 | DIAB.MNTFU ---
Follow-up Diabetes Medical Nutrition Therapy Assessment Name: Miguelito Orellana Date: 11/29/21 Time: 247-6547 Dx: Type II Diabetes Miguelito presents for follow-up visit. He has attended 2/3 DSME classes, and is scheduled to attend the third next month. States he has been working on his diet. Has reduced cereal portions and switched to higher protein options. Has also reduced carb portions, ie rice, with meals. Some high saturated fat intake with cream cheese. Some low veggie intake. Working on including more veggies at dinner. Enjoys raw over cooked vegetables. Plans for new hgA1c in December. Anthropometrics: Ht: 67 Wt: 251.2# today Weight history: -0.8# Physical Activity: 4 days per week, 30 min cardio, 30-45m weights Self-Monitoring Blood Glucose: Checking TID: FBG, pre lunch, and pre dinner. Not many pc readings, one reported at 161 mg/dL (in goal). Did not bring log book or meter today. Recent FBG 115-125mg/dL Sometimes will eat late and fasting <8 hours, but working on this. Most FBG in goal reportedly. worries about running out of supplies. Discussed only checking 1-2 x per day. 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 w/resulting apical akinesis, possible dyskinesis History of colon polyps History of nephrolithiasis History of UTI HLD (hyperlipidemia) Hydronephrosis Hypertension Ischemic cardiomyopathy Kidney stones Left renal stone Microalbuminuria Prostatitis S/P CABG x 1 (2012) Urinary retention Nutrition Rx: Carbohydrates: Meal: 45g (60g max) Snack: 15-30g Nutrition Diagnosis: - Excessive CHO intake r/t nutrition related knowledge deficit aeb diet recall and pt report- improved - Self monitoring deficit r/t knowledge deficit aeb pt report- improved - Inconsistent protein intake r/t nutrition related knowledge deficit aeb diet recall and pt report- improved - Predicted excessive saturated fat intake r/t nutrition knowledge deficit aeb diet recall- new Intervention: This participant was very receptive. Provided appropriate educational handouts. Discussed the following topics: Blood sugar trends. Only needing to check 1-2 x per day. Saturated fat in foods and impact on health, including liver health Review of liver enzymes and nutrition/exercise impact Physical activity plan and progress Created SMART goals for patient self-care and success. Goals: Call PCP office for meter and supplies rx prn- met Treadmill 5 days per week- 80% met Add protein to breakfast- met Reduce SMBG to 1-2 x per day- new Be mindful of cream cheese intake- new Cont working on eating vegetables daily- new Follow-up: MUNA SOARES follow-up in 1 month for class and 2 months for 1:1 Marcella Howell RDN, [facility] Certified Diabetes Care and Barrel Rifler P: [phone] Thank you for this referral
== END ==
PROVIDERS: PCP Student in an Organized Health Care Education/Training Program; Referring Provider Student in an Organized Health Care Education/Training Program; Visit Provider Student in an Organized Health Care Education/Training Program
DX: E11.9 Type 2 diabetes mellitus without complications (principal); Z79.84 Long term (current) use of oral hypoglycemic drugs; Z79.4 Long term (current) use of insulin; Z71.3 Dietary counseling and surveillance
CPT/HCPCS: 97803

== ENCOUNTER → 2022-01-03 09:22 | Outpatient (CLI) | payer OTHER, SELFPAY ==
--- NOTE | 2022-01-04 17:32 | DIAB.FU ---
Diabetes Education Class Series: Diabetes Lifestyle Change and Ongoing Support Name: Miguelito Orellana Date: 01/03/22 Time: 085-9687j Miguelito reports trying to cont weight loss efforts. Endorses 5# loss with watching carb portions and consistent exercise. States he is wondering how he can improve exercise regimen. Class topics covered: ? Discuss the difference between physical activity and exercise ? Determine physical activity benefits and impact on diabetes ? Review physical activity recommendations and safety ? Discuss emergency preparedness ? Discuss diabetes and emotions (diabetes burnout/distress) ? Review and practice stress management techniques ? Review support groups and community resources ? Discuss the role of family support in diabetes care ? What is going well? Challenges of diabetes? ? Set SMART goals Goal Set: Increase exercise time ; check BG Follow-up: MUNA SOARES follow-up 1:1 in 4 weeks Marcella Howell RDN, [facility] Certified Diabetes Care and Seconds Handler P: [phone] Thank you for this referral
== END ==
PROVIDERS: PCP Student in an Organized Health Care Education/Training Program; Referring Provider Student in an Organized Health Care Education/Training Program; Visit Provider Student in an Organized Health Care Education/Training Program
DX: E11.9 Type 2 diabetes mellitus without complications (principal); Z71.3 Dietary counseling and surveillance
CPT/HCPCS: G0109

== ENCOUNTER → 2022-01-26 14:55 | Outpatient (CLI) | payer OTHER, SELFPAY ==
--- NOTE | 2022-01-27 17:41 | DIAB.FU ---
Follow-up Diabetes Education Assessment Name: Miguelito Orellana Date: 01/26/22 Time: 310-405p Dx: Type II Diabetes Provider: Jose Farley presents for follow-up visit after attending DSME classes. Endorses being conscious of carb portions. Lunch recently seems high in carbs (75-100g+). Seems he is fasting 8 hours between meals, not just overnight due to a miscommunication. Continues to work on vegetable intake. States he is not eating vegetables everyday. Diet recall: 430a: low carb cereal with raisins and almond milk 2p: sandwich on a ciabatta roll x2 with cream cheese and pretzels 6-8p: pro with 1c rice +/- veggies Anthropometrics: Wt: 245# Weight history: 251.2# in November Physical Activity: Working on increasing activity time. Exercises 5 days per week. 30-45 min cardio + core exercises + wt lifting. Today he tells me he has a hx of torn aorta (diagnosed last year). States he was told to avoid core exercises and heavy lifting. States he has reduced core and lifting, but does not want to give it up. Encouraged him to follow-up on this and discuss further with provider. Self-Monitoring Blood Glucose: Prior to this week most FBG range from 94-145 mg/dL. No readings above 160 in the last month. Highest postprandial in December 158 mg/dl -- in goal. A few BG in the high 60s and low 70s likely r/t long periods of fasting during the day (8 hours) Date Pre Post Pre Post Pre Post HS 6 99 7/7 118 7/8 119 7/9 71 12 140 /13 74 14 122 Diabetes Medications: 1000mg Metformin BID 4mg Glimepiride BID Pertinent Labs: HgA1c per referral: 7.6% 07/20/21 -- reports a September HgA1c in the 9% range AST: 50 H ALT: 75 H eGFR: 54 L Past Medical History: (Last Updated 01/27/21 @ 09:43 by Keely Malone MD) Abdominal aortic aneurysm 4.2cm as of 09/04/2019 BCC (basal cell carcinoma) Bladder calculus BPH (benign prostatic hyperplasia) BPH w urinary obs/LUTS CAD (coronary artery disease) Diabetes Type II Erectile dysfunction Heart attack History of colon polyps History of nephrolithiasis History of UTI HLD (hyperlipidemia) Hydronephrosis Hypertension Ischemic cardiomyopathy Kidney stones Left renal stone Microalbuminuria Prostatitis Urinary retention Intervention: This participant was very receptive. Provided appropriate educational handouts. Discussed the following topics: Recent blood sugar results and trends Review of general nutrition recommendations and current intake Physical activity plan and impact on blood sugars and heart health (trying not to stress aorta tear) Ways to inc vegetable intake Rec on eating schedule Created SMART goals for patient self-care and success. Goals: Reduce SMBG to 1-2 x per day- met Be mindful of cream cheese intake- in progress Cont working on eating vegetables daily- in progress Eat q 3-5 hours- new Have a salad at least q other day- new Check BG after sandwiches at lunch- new Follow-up: MUNA SOARES follow-up 4-6 months. Encouraged Miguelito to call with any questions or concerns prn. He agreed to this plan. Marcella Howell RDN, [facility] Certified Diabetes Care and Load Out Person P: [phone] Thank you for this referral
== END ==
PROVIDERS: Referring Provider Student in an Organized Health Care Education/Training Program; Visit Provider Student in an Organized Health Care Education/Training Program
DX: E11.9 Type 2 diabetes mellitus without complications (principal); Z79.84 Long term (current) use of oral hypoglycemic drugs; Z71.3 Dietary counseling and surveillance
CPT/HCPCS: G0108

== ENCOUNTER → 2022-08-08 09:26 | Outpatient (CLI) | payer OTHER, SELFPAY ==
--- NOTE | 2022-08-16 10:42 | DIAB.MNTFU ---
Follow-up Diabetes Medical Nutrition Therapy Assessment Name: Miguelito Orellana Date: 08/08/22 Time: 170-3463v Dx: Type II Diabetes Provider: Danielle Farley presents for diabetes follow-up. Completed DSME classes last year. Here for check-in. States he recently stopped taking Metformin after reading online that the med was not good to take. States he feels confused as to whether he should be taking it. Endorses GI upset with 2500mg Metformin dose, but per RD notes was only taking 1000mg BID previously. He and his went to the [facility] in June. States he was hospitalized there for low oxygen and dx with pneumonia. Was treated with antibiotics. States after returning to [place], he and his were found to have MRSA infection. Diet recall indicates increased carb intake with pretzel portions at snacks, occasional soda and sweets. Dessert right after dinner, resulting in high CHO intake. Interested in increasing veggie intake. Wants to keep food journal. Feels he would like to go back to previous motivation he had to manage DM. Anthropometrics: Ht: 67 Wt: no wt today Weight history: 245# reported at last visit Physical Activity: No changes. Exercises 5 days per week. 30-45 min cardio + core exercises + wt lifting. More hiking when was on vacation. Self-Monitoring Blood Glucose: None recently. Reports some elevations in the 200s for fasting and after meals up to 290s. Likely up from d/c Metformin and increased CHO intake. Diabetes Medications: 1000mg Metformin BID (not taking) 4mg Glimepiride BID Pertinent Labs: Reports last HgA1c prior to vacation was 6.7% HgA1c per referral: 7.6% 07/20/21 -- reports a September HgA1c in the 9% range AST: 50 H ALT: 75 H eGFR: 54 L Past Medical History: (Last Updated 01/27/21 @ 09:43 by Keely Malone MD) Abdominal aortic aneurysm 4.2cm as of 09/04/2019 BCC (basal cell carcinoma) Bladder calculus BPH (benign prostatic hyperplasia) BPH w urinary obs/LUTS CAD (coronary artery disease) Diabetes Type II Erectile dysfunction Heart attack History of colon polyps History of nephrolithiasis History of UTI HLD (hyperlipidemia) Hydronephrosis Hypertension Ischemic cardiomyopathy Kidney stones Left renal stone Microalbuminuria Prostatitis Urinary retention Nutrition Rx: Carbohydrates: Meal: 45g (60g max) Snack: 15-30g Nutrition Diagnosis: - Excessive CHO intake r/t stage of change relapse aeb pt report of limited motivation and diet recall - Predicted excessive saturated fat intake r/t nutrition knowledge deficit aeb diet recall- in progress - Self monitoring deficit r/t no SMBG aeb pt report Intervention: This participant was very receptive. Provided appropriate educational handouts. Discussed the following topics: Safety of Metformin CKD vs kidney stones (has h/o kidney stones) Blood glucose and monitoring Motivation for making change ways to increase veggies; likes salads Created SMART goals for patient self-care and success. Goals: Restart Metformin gradually to avoid GI upset Check BG: start with FBG Measure blue cheese dressing Keep food journal Follow-up: MUNA SOARES follow-up in 3-4 weeks Marcella Howell RDN, [facility] Certified Diabetes Care and Carrier Packer P: [phone] Thank you for this referral
== END ==
PROVIDERS: PCP Family Medicine; Referring Provider Family Medicine; Visit Provider Family Medicine
DX: E11.9 Type 2 diabetes mellitus without complications (principal); Z79.84 Long term (current) use of oral hypoglycemic drugs; Z71.3 Dietary counseling and surveillance
CPT/HCPCS: 97803

== ENCOUNTER → 2022-08-24 08:37 | Outpatient (CLI) | payer OTHER, SELFPAY ==
--- NOTE | 2022-08-24 08:39 | DI.RAD.S_ITS ---
PROCEDURE: XR KUB INDICATIONS: renal calculus TECHNIQUE: One view of the abdomen acquired. COMPARISON: [facility], , XR KUB, 01/14/2021, 9:53. FINDINGS: Surgical changes and devices: None. Bowel: Bowel gas pattern is normal. Soft tissues: Stable 1.1 cm calcification projecting over the left renal shadow noted. Atherosclerotic vascular calcifications noted Bones: Degenerative changes noted IMPRESSION: Stable left renal calculus Approved by: Isac Padron M.D. on 08/24/2022 at 10:06
[2022-08-24 10:10] LABS: Prostate Specific Antigen 2.67 ng/mL (0.10-4.00)
== END ==
PROVIDERS: PCP Family Medicine; Referring Provider Specialist; Visit Provider Specialist
DX: N20.0 Calculus of kidney (principal); N21.0 Calculus in bladder; N40.1 Benign prostatic hyperplasia with lower urinary tract symptoms; N13.8 Other obstructive and reflux uropathy
CPT/HCPCS: 36415; 74018; 84153

== ENCOUNTER → 2022-09-07 10:55 | Outpatient (CLI) | payer OTHER, SELFPAY ==
--- NOTE | 2022-09-21 09:54 | DIAB.MNTFU ---
Follow-up Diabetes Medical Nutrition Therapy Assessment Name: Miguelito Orellana Date: 09/07/22 Time: 11a-12p Dx: Type II Diabetes Provider: Danielle Miguelito presents for DM follow-up. Reports he has restarted his Metformin without GI concerns. Has been keeping a food journal. Reports high saturated fat intake with 3 lbs cream cheese over 10 days.?This results in about 25g saturated fat per day. Would like to discuss snack options. Also reports a vitamin his takes, Intra. Wondering if he too should start this supplement. No readable label available online. Though there is a note from 08/28 for elevated BP and vomiting visit at walk-in clinic, Miguelito denies coming into walk-in clinic. RD will follow-up. Diet Recall: B: 1 cup cereal ([employer] cran) with a few raisins and almond milk. L: turkey sandwich. D: chicken and rice.? Anthropometrics: Ht: 67 Wt: no wt today Endorses about 20# loss over the last year intentionally Physical Activity: Cardio 30 min per day with wt lifting and cor exercises 5 ays per week. States he is working on increasing his cardio Self-Monitoring Blood Glucose: Much improved since last visit, r/t Metformin. FBG in goal. Date Pre Post Pre Post Pre Post HS 09/01 98 09/02 126 09/03 115 09/04 121 09/05 128 09/06 107 09/07 99 Diabetes Medications: 1000mg Metformin BID 4mg Glimepiride BID Pertinent Labs: Reports last HgA1c prior to vacation was 6.7%. RD to request new labs. HgA1c per referral: 7.6% 07/20/21 -- reports a September HgA1c in the 9% range AST: 50 H ALT: 75 H eGFR: 54 L Past Medical History: (Last Reviewed 09/14/22 @ 09:27 by JAGJIT Hazel) Abdominal aortic aneurysm 4.2cm as of 09/04/2019 BCC (basal cell carcinoma) Bladder calculus BPH (benign prostatic hyperplasia) BPH w urinary obs/LUTS CAD (coronary artery disease) Diabetes Type II Erectile dysfunction Heart attack History of colon polyps History of nephrolithiasis History of UTI HLD (hyperlipidemia) Hydronephrosis Hypertension Ischemic cardiomyopathy Kidney stones Left renal stone Microalbuminuria Prostatitis Urinary retention Nutrition Rx: Carbohydrates: Meal: 45g (60g max) Snack: 15-30g Nutrition Diagnosis: - Excessive CHO intake r/t stage of change relapse aeb pt report of limited motivation and diet recall- improved - Predicted excessive saturated fat intake r/t nutrition knowledge deficit aeb diet recall- in progress - Self monitoring deficit r/t no SMBG aeb pt report - improved Intervention: This participant was very receptive. Provided appropriate educational handouts. Discussed the following topics: Blood sugar review and trends. Impact of oral DM meds on FBG. Review of food journal Heart health and DM Heart health and diet: saturated fat and lipids Snack ideas Physical activity Created SMART goals for patient self-care and success. Goals: Restart Metformin gradually to avoid GI upset- met Check BG: start with FBG- met Measure blue cheese dressing- not met Keep food journal- met Have pretzels with cream cheese q other day (not q day)- new Sub fruit and protein for q other day snack-new Take a photo of supplement label- new Follow-up: MUNA SOARES follow-up in 6-8 weeks Marcella Howell RDN, [facility] Certified Diabetes Care and Magnetic Testing Technician P: [phone] Thank you for this referral
== END ==
PROVIDERS: PCP Family Medicine; Referring Provider Family Medicine; Visit Provider Family Medicine
DX: E11.9 Type 2 diabetes mellitus without complications (principal); Z79.84 Long term (current) use of oral hypoglycemic drugs; Z71.3 Dietary counseling and surveillance
CPT/HCPCS: 97803

== ENCOUNTER → 2022-09-14 08:57 | Outpatient (CLI) | payer OTHER, SELFPAY | PROVIDERS: PCP Family Medicine; Visit Provider Registered Nurse | DX: R31.9 Hematuria, unspecified (principal) | CPT/HCPCS: 87086 ==

== ENCOUNTER → 2022-12-13 08:42 | Outpatient (CLI) | payer OTHER, SELFPAY ==
--- NOTE | 2023-01-04 08:30 | DIAB.FU ---
Follow-up Diabetes Education Assessment Name: Miguelito Orellana Date: 12/13/22 Time: 9930a Dx: Type II Diabetes Miguelito presents today for DM follow-up. Reports implementing snack ideas discussed last visit. FBG continue in goal. Water intake low, 16.9oz 2-3x per day. Diet recall indicates adequate carb portions and good meal timing. Has questions regarding complication risk reduction. has seen family resource management specialist. no dental. Plans to see PCP December 22. Physical Activity: No change. Cont resistance training and cardio. Self-Monitoring Blood Glucose: Recent FBG range from 88-115mg/dl. Diabetes Medications: 1000mg Metformin BID 4mg Glimepiride BID Pertinent Labs: 08/2021 hgA1c 7.7% Past Medical History: (Last Reviewed 09/14/22 @ 09:27 by JAGJIT Hazel) Abdominal aortic aneurysm 4.2cm as of 09/04/2019 BCC (basal cell carcinoma) Bladder calculus BPH (benign prostatic hyperplasia) BPH w urinary obs/LUTS CAD (coronary artery disease) Diabetes Type II Erectile dysfunction Heart attack History of colon polyps History of nephrolithiasis History of UTI HLD (hyperlipidemia) Hydronephrosis Hypertension Ischemic cardiomyopathy Kidney stones Left renal stone Microalbuminuria Prostatitis Urinary retention Intervention: This participant was very receptive. Provided appropriate educational handouts. Discussed the following topics: Recent blood sugar results and trends Review of general nutrition recommendations and current intake Prevention of complications: foot care, dental and eye appointments, kidney and heart health Hydration impact on overall health and BG Created SMART goals for patient self-care and success. Goals: Have pretzels with cream cheese q other day (not q day)- met Sub fruit and protein for q other day snack-met Take a photo of supplement label- d/c Aim for 3-4 x 16.9 water bottles per day- new Consider dental appt- new Follow-up: MUNA SOARES follow-up in May due to [facility] leave. Offered resources for support in the interim. Marcella Howell RDN, [facility] Certified Diabetes Care and Customer Success Associate P: [phone] Thank you for this referral
== END ==
PROVIDERS: PCP Family Medicine; Referring Provider Family Medicine; Visit Provider Family Medicine
DX: E11.9 Type 2 diabetes mellitus without complications (principal); Z79.84 Long term (current) use of oral hypoglycemic drugs; Z71.3 Dietary counseling and surveillance
CPT/HCPCS: G0108

== ENCOUNTER → 2023-06-13 09:28 | Outpatient (CLI) | payer OTHER, SELFPAY ==
--- NOTE | 2023-06-14 16:55 | DIAB.FU ---
Follow-up Diabetes Education Assessment Name: Miguelito Orellana Date: 06/13/23 Time: 935-1005am Dx: Type II Diabetes Provider: Danielle Miguelito presents today for DM f/u. Reports BG well managed. Has reduced carb and saturated fat intake. States he has completed an eye exam, no concerns/findings. Reports calloused and dry feet. Asking about foot care recommendations, h/o using file on heel. Also asking about fruit portions for snacks/meals. Per diet recall, most meals are within goal for CHO. Much improved hydration since last visit with 4-5 bottles of water per day + tea. Physical Activity: 36 min cardio, additional resistance training 6 days per week Self-Monitoring Blood Glucose: FBG often 90-110 mg/dl per report. Occasional elevation at 169mg/dl fasting. No postprandial checks. Diabetes Medications: 1000mg Metformin BID 4mg Glimepiride BID Pertinent Labs: No new labs available. RD will request recent labs. Miguelito reports hgA1c around 7%. Plans to see PCP 6 months after last lab. 08/2021 hgA1c 7.7% Past Medical History: (Last Reviewed 09/14/22 @ 09:27 by JAGJIT Hazel) Abdominal aortic aneurysm 4.2cm as of 09/04/2019 BCC (basal cell carcinoma) Bladder calculus BPH (benign prostatic hyperplasia) BPH w urinary obs/LUTS CAD (coronary artery disease) Diabetes Type II Erectile dysfunction Heart attack History of colon polyps History of nephrolithiasis History of UTI HLD (hyperlipidemia) Hydronephrosis Hypertension Ischemic cardiomyopathy Kidney stones Left renal stone Microalbuminuria Prostatitis Urinary retention Intervention: This participant was very receptive. Provided appropriate educational handouts. Discussed the following topics: Recent blood sugar results and trends Review of fruit recs per meal/snack Review of general nutrition recommendations and current intake Foot care: avoiding breaking skin, encouraged podiatry prn, encouraged lotion on feet (not between toes) daily and foot checks Prevention of complications: foot care, dental and eye appointments Created SMART goals for patient self-care and success. Goals: Aim for 3-4 x 16.9 water bottles per day- met Lotion fee daily- new Keep fruit to 1-2c - new Follow-up: MUNA CDCES follow-up in Aug or September next year. RD will provide him with podiatry resource and req labs from PCP. Encouraged Miguelito to call for sooner f/u prn. Marcella Howell RDN, [facility] Certified Diabetes Care and Spooler Operator P: [phone] Thank you for this referral
== END ==
PROVIDERS: PCP Family Medicine; Referring Provider Family Medicine; Visit Provider Family Medicine
DX: E11.9 Type 2 diabetes mellitus without complications (principal); Z79.84 Long term (current) use of oral hypoglycemic drugs; Z71.3 Dietary counseling and surveillance
CPT/HCPCS: G0108

== ENCOUNTER → 2023-10-04 06:58 | Outpatient (CLI) | payer OTHER, SELFPAY ==
--- NOTE | 2023-10-04 07:00 | DI.US.S_ITS ---
PROCEDURE: US RETRO PERITONEAL LIMITED INDICATIONS: MID AORTIC ANEURYSM TECHNIQUE: Real time scanning was performed of the aorta and iliac arteries, with image documentation. COMPARISON: [facility], , RETRO PERITONEAL LIMITED, 01/18/2018, 8:59. FINDINGS: Aorta: Proximal aortic diameter measures 2.5 cm. Mid-aorta measures 5.5 cm. Distal aortic diameter is 2.5 cm. Iliac arteries: Right common iliac artery measures 1.8 cm. Left common iliac artery measures 1.3 cm. IMPRESSION: 1. 5.5 cm mid abdominal aortic aneurysm measured in the lateral dimension. This measured 3.5 cm in diameter on the study dated December 19, 2017. Vascular surgery consultation recommended. Dictated by: Hilda Cartwright M.D. on 10/04/2023 at 9:52 Approved by: Hilda Cartwright M.D. on 10/04/2023 at 9:57
== END ==
LOC: US 06:59
PROVIDERS: PCP Family Medicine; Referring Provider Family Medicine; Visit Provider Family Medicine
DX: Z13.6 Encounter for screening for cardiovascular disorders (principal); I71.40 Abdominal aortic aneurysm, without rupture, unspecified
CPT/HCPCS: 76775

== ENCOUNTER → 2023-10-09 09:20 | Outpatient (CLI) | payer OTHER, SELFPAY ==
--- NOTE | 2023-10-11 17:20 | DIAB.MNTFU ---
Follow-up Diabetes Medical Nutrition Therapy Assessment Name: Miguelito Orellana Date: 10/09/23 Time: [id number] Dx: Type II Diabetes Miguelito presents for Dm follow-up. Reports concerns about taking Metformin again this visit. This is mostly r/t online misinformation seemingly. Also reports plans to titrate off Metformin and on a CBD gummy due to an ad on social media claiming to cure diabetes. After further research, this add was a deep fake using Dr. Garcia. After realizing this, Miguelito plans to continue on Metformin and not take CBD gummy. Reports referral to see surgeon for aorta. Has not received a call. Diet Recall: 430a: high protein cereal, almond milk and 2TB raisins or more 11a-12p: 24-25 pretzels with honey and pb 3-4p 2 bagels, meat, lettuce, cream cheese Water 3-5 bottles per day Anthropometrics: Ht: 67 Wt: 240.8# (09/2022) No other recent wts available for review Physical Activity: 36 min cardio, additional resistance training 6 days per week Self-Monitoring Blood Glucose: FBG 90-120mg/dl, occasionally 163mg/dl. No postprandial available. Diabetes Medications: 1000mg Metformin BID 4mg Glimepiride BID Pertinent Labs: HgA1c: 7.7% 08/2021 7.7% 08/2022 6.8% 11/2022 6.9% 03/2023 7.2% 09/2023 reported Past Medical History: (Last Reviewed 09/14/22 @ 09:27 by JAGJIT Hazel) Abdominal aortic aneurysm 4.2cm as of 09/04/2019 BCC (basal cell carcinoma) Bladder calculus BPH (benign prostatic hyperplasia) BPH w urinary obs/LUTS CAD (coronary artery disease) Diabetes Type II Erectile dysfunction Heart attack History of colon polyps History of nephrolithiasis History of UTI HLD (hyperlipidemia) Hydronephrosis Hypertension Ischemic cardiomyopathy Kidney stones Left renal stone Microalbuminuria Prostatitis Urinary retention Nutrition Rx: Carbohydrates: Meal: 45g (60g max) Snack: 15-30g Nutrition Diagnosis: Excessive CHO intake r/t nutrition knowledge deficit aeb diet recall indicating 90-120g meal Predicted inadequate fiber intake r/t limited whole grains and veggies aeb diet recall Intervention: This participant was very receptive. Provided appropriate educational handouts. Discussed the following topics: Researched ad reported and discussed deceptive ads regarding diabetes cures Reviewed Metformin safety Blood sugar review and trends. Meal planning and carb portion recs BG monitoring Strategies for increasing veggies Plans for surgery for aorta Created SMART goals for patient self-care and success. Goals: Lotion fee daily- not discussed Keep fruit to 1-2c - continue Call surgeon for appt tomorrow- new Restart salads at dinner- new Limit bagel to one per sitting- new Follow-up: MUNA SOARES follow-up 3 months or sooner kristina Howell RDN, [facility] Certified Diabetes Care and Special Distribution Clerk P: [phone] Thank you for this referral
== END ==
PROVIDERS: PCP Family Medicine; Referring Provider Family Medicine; Visit Provider Family Medicine
DX: E11.9 Type 2 diabetes mellitus without complications (principal); Z79.84 Long term (current) use of oral hypoglycemic drugs; Z71.3 Dietary counseling and surveillance
CPT/HCPCS: 97803

== ENCOUNTER → 2023-10-22 11:11 | Outpatient (CLI) | payer OTHER, SELFPAY ==
--- NOTE | 2023-10-22 11:14 | DI.CT.S_ITS ---
PROCEDURE: CT ANGIO CHEST ABDOMEN PELVIS INDICATIONS: Infrarenal abdominal aortic aneurysm, without rupt TECHNIQUE: Precontrast 5 mm thick sections acquired from the lung apices to the iliac crests. After the administration of intravenous contrast, 2.5 mm thick sections again acquired from the lung apices to the iliac crests. Maximum intensity projection (MIP) oblique sagittal and coronal reformats were then acquired. For radiation dose reduction, the following was used: automated exposure control. COMPARISON: [facility], CT, CT ABDOMEN PELVIS W CON, 09/09/2020, 11:35. FINDINGS: Image quality: Diagnostic. AORTA and its attachments: The thoracic aorta is normal in caliber without dissection. There is classic three-vessel arch anatomy. Great vessel origins are widely patent. The celiac, SMA, JENNIFER, and bilateral renal arteries are patent. There is aneurysmal dilatation of the infrarenal abdominal aorta. There is a wide neck between the lowest renal artery and the aneurysm, which is surgical in size. It measures 4.5 x 5.1 cm in diameter on image 185/4. It has significantly increased in size over a relatively short interval. On previous image 37/2 it measures 3.5 x 4.3 cm. The bilateral common iliac arteries are ectatic but not frankly aneurysmal. The right common iliac artery measures 1.8 cm in the left common iliac artery measures 2.0 cm. There is no significant stenotic disease. The external iliacs and common femorals are patent. CHEST: Lower Neck: No enlarged lymph nodes. Thyroid: No thyroid nodules which require sonographic evaluation. Axillae: No enlarged lymph nodes. Chest Wall: Unremarkable. Lungs and Pleura: No pneumothorax or pleural effusions. No consolidation or suspicious nodules. Heart: Heart size is normal. No pericardial effusion. Severe coronary artery calcifications. Thoracic Vessels: Pulmonary arteries demonstrate normal size. Mediastinum and Linnea: No enlarged lymph nodes. Esophagus: No wall thickening. No hiatal hernia. ABDOMEN: Liver: No solid mass. Gallbladder: No radiopaque gallstones or wall thickening. Biliary ducts: No biliary dilation. Pancreas: No ductal dilation. Spleen: Size is within normal limits. Adrenal Glands: No adrenal nodules. Kidneys and Ureters: No hydronephrosis. No solid mass. No complex renal cystic lesion which requires follow up. Stomach and Bowel: Normal colonic caliber, without significant wall thickening. Diverticulosis without evidence of diverticulitis. Peritoneum: No abnormal intraperitoneal fluid. No free air. Ventral Wall: No hernia. Abdominal Nodes: No retroperitoneal or mesenteric adenopathy by size criteria. Vessels: Inferior vena cava is normal in size. PELVIS: Pelvic Organs: Unremarkable. Bladder: Unremarkable. Pelvic Nodes: No enlarged lymph nodes. Miscellaneous: No inguinal hernias are seen. Bones: Lumbar degenerative change. No lytic or blastic bony lesions. No compression fractures. IMPRESSION: 1. Relatively rapid expansion of a abdominal aortic aneurysm, which is now surgical in size, measuring 4.5 x 5.1 cm. It has suitable anatomy for endovascular repair. 2. Severe coronary artery calcifications. 3. No acute process in the chest. 4. No acute process in the abdomen and pelvis. Dictated by: Ranjeet Castillo M.D. on 10/22/2023 at 16:31 Approved by: Ranjeet Castillo M.D. on 10/22/2023 at 16:42
[2023-10-22 11:38] LABS: Estimated Glomerular Filt Rate > 60 mL/min (>60)
== END ==
PROVIDERS: Radiology Diagnostic Radiology; PCP Family Medicine; Referring Provider Surgery Vascular Surgery; Visit Provider Surgery Vascular Surgery
DX: I71.43 Infrarenal abdominal aortic aneurysm, without rupture (principal); I25.10 Atherosclerotic heart disease of native coronary artery without angina pectoris
CPT/HCPCS: 36415; 71275; 74174; 82565; Q9967

== ENCOUNTER → 2024-06-04 11:29 | Outpatient (ROUT) | payer OTHER, SELFPAY | PROVIDERS: PCP Family Medicine; Visit Provider Family Medicine | DX: S30.92XA Unspecified superficial injury of abdominal wall, initial encounter (principal) | CPT/HCPCS: 87070; 87077; 87186; 87205 ==

== ENCOUNTER → 2025-01-26 13:32 | Outpatient (CLI) | payer MEDICARE, SELFPAY ==
--- NOTE | 2025-01-26 13:34 | DI.CT.S_ITS ---
PROCEDURE: CT ANGIO ABDOMEN PELVIS INDICATIONS: AAA TECHNIQUE: Non-contrast 3 mm thick sections acquired from the diaphragm to the symphysis. After the administration of intravenous contrast, 2.5 mm thick sections acquired from the diaphragm to the symphysis during the arterial and venous phases. 10 mm maximum intensity projection (MIP) reformats were acquired of the arterial phase images. For radiation dose reduction, the following was used: automated exposure control. COMPARISON: [facility], CT, CT ANGIO CHEST ABDOMEN PELVIS, 10/22/2023, 12:06. FINDINGS: Image Quality: Diagnostic. Abdominal aorta: Interval stent placement of an infrarenal aortic aneurysm. The sac measures 5.0 x 4.5 centimeter, previously 5.0 x 4.6 centimeter. There is a type 2 endoleak caused by retrograde flow from the JENNIFER (series 6, image 92). Mesenteric arteries: Patent without hemodynamically significant stenosis. Renal arteries: Patent without hemodynamically significant stenosis. OTHER: Lower Chest: Cardiomegaly. Liver: No solid mass. Gallbladder: No radiopaque gallstones or wall thickening. Biliary ducts: No biliary dilation. Pancreas: No ductal dilation. Spleen: Size is within normal limits. Adrenal Glands: No adrenal nodules. Kidneys and Ureters: No hydronephrosis. No solid mass. No complex renal cystic lesion which requires follow up. Small burden of bilateral nonobstructing nephrolithiasis, largest measuring 10 x 8 millimeter on the left and 5 millimeter on the right. The left kidney is relatively atrophic. Stomach and Bowel: Normal colonic caliber, without significant wall thickening. Colonic diverticulosis without evidence of diverticulitis. Peritoneum: No abnormal intraperitoneal fluid. No free air. Ventral Wall: No hernia. Abdominal Nodes: No retroperitoneal or mesenteric adenopathy by size criteria. Vessels: Inferior vena cava is normal in size. PELVIS: Pelvic Organs: Prostatomegaly. Bladder: Unremarkable. Pelvic Nodes: No enlarged lymph nodes. Miscellaneous: Small inguinal hernias containing fat. Bones: No aggressive osseous abnormality. IMPRESSION: Interval infrarenal aortic stent placement, with a type 2 endoleak caused by retrograde flow from the JENNIFER. The sac has slightly decreased in size compared with prior. Small burden of bilateral nonobstructing nephrolithiasis. Dictated by: Alfonso Benson M.D. on 01/26/2025 at 15:54 Approved by: Alfonso Benson M.D. on 01/26/2025 at 15:59
[2025-01-26 13:57] LABS: Estimated Glomerular Filt Rate > 60 mL/min (>60)
== END ==
PROVIDERS: PCP Family Medicine; Referring Provider Physician Assistant; Visit Provider Physician Assistant
DX: I71.40 Abdominal aortic aneurysm, without rupture, unspecified (principal); I97.89 Other postprocedural complications and disorders of the circulatory system, not elsewhere classified; N20.0 Calculus of kidney; N40.0 Benign prostatic hyperplasia without lower urinary tract symptoms; K40.90 Unilateral inguinal hernia, without obstruction or gangrene, not specified as recurrent; K57.90 Diverticulosis of intestine, part unspecified, without perforation or abscess without bleeding
CPT/HCPCS: 36415; 74174; 82565; Q9967

== ENCOUNTER → 2025-04-16 15:27 | Outpatient (CLI) | payer MEDICARE, SELFPAY ==
--- NOTE | 2025-04-16 15:29 | DI.RAD.S_ITS ---
PROCEDURE: XR CHEST 2V INDICATIONS: ACUTE COUGH TECHNIQUE: 2 views of the chest were acquired. COMPARISON: [facility], , CHEST 2 VIEW, 09/01/2015, 10:20. FINDINGS: Surgical changes and devices: Intact median sternotomy wires. Surgical clips along the mediastinal contour likely related to prior CABG. Lungs and pleura: Lungs are clear. No pleural effusions or pneumothorax. Mediastinum: Mediastinal contours are normal. Heart size is normal. Bones and chest wall: No suspicious bony abnormalities. Soft tissues appear unremarkable. IMPRESSION: No acute cardiopulmonary abnormality is seen. Dictated by: Adilene Singh M.D. on 04/16/2025 at 16:51 Approved by: Adilene Singh M.D. on 04/16/2025 at 16:53
== END ==
PROVIDERS: PCP Family Medicine; Referring Provider Family Medicine; Visit Provider Family Medicine
DX: R05.1 Acute cough (principal)
CPT/HCPCS: 71046